=== PATIENT | male | born 1940 | race Two or more races ===

== ENCOUNTER 2018-12-10 05:14 | Inpatient (IN) | payer MEDICARE, BC ==
[2018-12-10] MEDS ORDERED: MAG HYDROX/AL HYDROX/SIMETH 30 ML UDC PO PRN (06:00)
[2018-12-10] MEDS ORDERED: MAGNESIUM HYDROXIDE 30 ML UDC PO PRN (06:00)
[2018-12-10] MEDS ORDERED: BLOOD SUGAR DIAGNOSTIC 1 EACH STRIP IN ONE (06:00)
[2018-12-10] MEDS ORDERED: ACETAMINOPHEN 325 MG TABLET PO PRN (06:00)
[2018-12-10] MEDS ORDERED: QUET300T5 PO (12:51)
[2018-12-10] MEDS ORDERED: ESCI10TA PO (12:51)
[2018-12-10] MEDS ORDERED: FURO-144 PO (12:51)
[2018-12-10] MEDS ORDERED: PANT40TA4 PO (12:51)
[2018-12-10] MEDS ORDERED: PREG150C PO (12:51)
[2018-12-10] MEDS ORDERED: HYDR-4384 PO (12:51)
[2018-12-10] MEDS ORDERED: SPIR25TA6 PO (12:51)
[2018-12-10] MEDS ORDERED: METO100T14 PO (12:51)
[2018-12-10] MEDS ORDERED: ATOR40TA PO (12:51)
[2018-12-10] MEDS ORDERED: TRAZ-214 PO (12:51)
[2018-12-10] MEDS ORDERED: ASPI-605 PO (12:51)
[2018-12-10] MEDS ORDERED: RIVA10TA PO (12:51)
[2018-12-10] MEDS ORDERED: LISI2.5T2 PO (12:51)
[2018-12-10] MEDS ORDERED: CARV3.122 PO (12:51)
[2018-12-10] MEDS ORDERED: FIXODENT 1 EA TUBE MM PRN (13:00)
[2018-12-10] MEDS ORDERED: HYDROCODONE/APAP 5/325MG 1 EACH TABLET PO PRN (20:00)
[2018-12-10] MEDS: ATORVASTATIN 40 MG TABLET PO SCH (21:43)
[2018-12-10] MEDS: TEMAZEPAM 7.5 MG CAPSULE PO PRN (21:43)
[2018-12-11] MEDS: LORAZEPAM 0.5 MG TABLET PO PRN (01:41)
[2018-12-11] MEDS: CARVEDILOL 3.125 MG TABLET PO SCH (08:50)
[2018-12-11] MEDS: FUROSEMIDE 40 MG TABLET PO SCH (08:50)
[2018-12-11] MEDS: ASPIRIN EC 81 MG TABLET.DR PO SCH (08:50)
[2018-12-11] MEDS: SPIRONOLACTONE 25 MG TABLET PO SCH (08:50)
[2018-12-11] MEDS: PANTOPRAZOLE 40 MG TABLET.DR PO SCH (08:50)
[2018-12-11] MEDS: RIVAROXABAN 10 MG TABLET PO SCH (08:52)
[2018-12-11] MEDS: METOPROLOL TARTRATE 50 MG TABLET PO SCH (09:00)
[2018-12-11] MEDS: DIVALPROEX SODIUM 250 MG TABLET.DR PO SCH ×3 (09:00→16:24)
[2018-12-11] MEDS: LISINOPRIL (5MG) 5 MG TABLET PO SCH (09:00)
[2018-12-11] MEDS: DULOXETINE HCL 30 MG CAPSULE.DR PO SCH (09:00)
[2018-12-11] MEDS: risperiDONE 1 MG TABLET PO SCH ×2 (16:24→21:24)
[2018-12-11] MEDS: ATORVASTATIN 40 MG TABLET PO SCH (21:23)
[2018-12-11] MEDS ORDERED: LYRICA 150 MG PO PRN (22:00)
[2018-12-11] MEDS: TEMAZEPAM 7.5 MG CAPSULE PO PRN (22:30)
[2018-12-12] MEDS: LORAZEPAM 0.5 MG TABLET PO PRN ×2 (02:30→16:29)
[2018-12-12] MEDS: risperiDONE 1 MG TABLET PO SCH (08:56)
[2018-12-12] MEDS: SPIRONOLACTONE 25 MG TABLET PO SCH (08:57)
[2018-12-12] MEDS: METOPROLOL TARTRATE 50 MG TABLET PO SCH (08:57)
[2018-12-12] MEDS: RIVAROXABAN 10 MG TABLET PO SCH (08:58)
[2018-12-12] MEDS: ASPIRIN EC 81 MG TABLET.DR PO SCH (08:59)
[2018-12-12] MEDS: FUROSEMIDE 40 MG TABLET PO SCH (08:59)
[2018-12-12] MEDS: PANTOPRAZOLE 40 MG TABLET.DR PO SCH (09:00)
[2018-12-12] MEDS: LISINOPRIL (5MG) 5 MG TABLET PO SCH (09:00)
[2018-12-12] MEDS: DULOXETINE HCL 30 MG CAPSULE.DR PO SCH (09:00)
[2018-12-12] MEDS: DIVALPROEX SODIUM 250 MG TABLET.DR PO SCH ×3 (09:01→16:30)
[2018-12-12] MEDS: CARVEDILOL 3.125 MG TABLET PO SCH (09:01)
[2018-12-12] MEDS: PREGABALIN 25 MG CAPSULE PO SCH (12:25)
[2018-12-12] MEDS: ATORVASTATIN 40 MG TABLET PO SCH (21:28)
[2018-12-12] MEDS: QUETIAPINE FUMARATE 100 MG TABLET PO SCH (21:34)
[2018-12-12] MEDS: TEMAZEPAM 7.5 MG CAPSULE PO PRN (22:09)
[2018-12-13] MEDS: RIVAROXABAN 10 MG TABLET PO SCH (08:50)
[2018-12-13] MEDS: DIVALPROEX SODIUM 250 MG TABLET.DR PO SCH ×3 (08:51→16:39)
[2018-12-13] MEDS: PREGABALIN 25 MG CAPSULE PO SCH (08:51)
[2018-12-13] MEDS: PANTOPRAZOLE 40 MG TABLET.DR PO SCH (08:51)
[2018-12-13] MEDS: DULOXETINE HCL 30 MG CAPSULE.DR PO SCH (08:51)
[2018-12-13] MEDS: QUETIAPINE FUMARATE 100 MG TABLET PO SCH ×2 (08:52→21:23)
[2018-12-13] MEDS: CARVEDILOL 3.125 MG TABLET PO SCH (08:52)
[2018-12-13] MEDS: SPIRONOLACTONE 25 MG TABLET PO SCH (08:52)
[2018-12-13] MEDS: ASPIRIN EC 81 MG TABLET.DR PO SCH (08:52)
[2018-12-13] MEDS: FUROSEMIDE 40 MG TABLET PO SCH (08:53)
[2018-12-13] MEDS: METOPROLOL TARTRATE 50 MG TABLET PO SCH (08:53)
[2018-12-13] MEDS: LISINOPRIL (5MG) 5 MG TABLET PO SCH (08:53)
[2018-12-13] MEDS: ATORVASTATIN 40 MG TABLET PO SCH (21:23)
[2018-12-13] MEDS: TEMAZEPAM 7.5 MG CAPSULE PO PRN (22:19)
[2018-12-14] MEDS: PANTOPRAZOLE 40 MG TABLET.DR PO SCH (08:12)
[2018-12-14] MEDS: LISINOPRIL (5MG) 5 MG TABLET PO SCH (08:12)
[2018-12-14] MEDS: PREGABALIN 25 MG CAPSULE PO SCH (08:12)
[2018-12-14] MEDS: ASPIRIN EC 81 MG TABLET.DR PO SCH (08:12)
[2018-12-14] MEDS: DULOXETINE HCL 30 MG CAPSULE.DR PO SCH (08:12)
[2018-12-14] MEDS: DIVALPROEX SODIUM 250 MG TABLET.DR PO SCH ×3 (08:12→16:43)
[2018-12-14] MEDS: METOPROLOL TARTRATE 50 MG TABLET PO SCH (08:13)
[2018-12-14] MEDS: FUROSEMIDE 40 MG TABLET PO SCH (08:14)
[2018-12-14] MEDS: CARVEDILOL 3.125 MG TABLET PO SCH (08:14)
[2018-12-14] MEDS: SPIRONOLACTONE 25 MG TABLET PO SCH (08:15)
[2018-12-14] MEDS: QUETIAPINE FUMARATE 100 MG TABLET PO SCH (08:15)
[2018-12-14] MEDS: RIVAROXABAN 10 MG TABLET PO SCH (08:17)
== END 2018-12-14 20:59 | disposition home or self-care (01) | DRG 885 ==
DX: F25.9 Schizoaffective disorder, unspecified (principal); D68.59 Other primary thrombophilia; F41.9 Anxiety disorder, unspecified; I48.91 Unspecified atrial fibrillation; I25.10 Atherosclerotic heart disease of native coronary artery without angina pectoris; I25.2 Old myocardial infarction; Z95.1 Presence of aortocoronary bypass graft; Z95.0 Presence of cardiac pacemaker; I10 Essential (primary) hypertension; Z96.653 Presence of artificial knee joint, bilateral; Z96.642 Presence of left artificial hip joint; F39 Unspecified mood [affective] disorder